=== PATIENT | female | born 1930 | race Caucasian/White ===

== ENCOUNTER 2017-08-13 20:23 | Emergency (ER) | payer OTHER ==
[~2017-08-13] VITALS: Ht 162.6 cm; Wt 63.5 kg
[~2017-08-13 20:23] MED LIST: ALL DAY ALLERGY10 M3 PO; ARICEPT10 MG PO; ASPIR 8181 MG PO; GABAPENTIN300 MG PO; LATANOPROST2.5 ML; LEVOTHYROXINE125 MCG PO; MILLIPRED5 MG PO; NAPROXEN250 MG PO; OXTELLAR XR600 MG PO; PLAVIX75 MG PO; RANITIDINE HCL300 M1 PO; SERTRALINE HCL50 MG PO; SIMVASTATIN10 MG PO; [UNRECOGNIZED DRUG - OTHER] PO
[2017-08-13] MEDS ORDERED: OXCARBAZEPINE600 MG (20:34)
[2017-08-13] MEDS ORDERED: HYDROCHLOROTH12.5 M1 (20:35)
== END 2017-08-13 22:52 | disposition home or self-care (01) ==
LOC: ER 20:23
DX: R06.02 Shortness of breath (principal)